=== PATIENT | male | born 1985 ===

== ENCOUNTER 2016-10-22 22:07 | Emergency (ER) | payer SELFPAY | END 2016-10-22 23:17 | disposition left against medical advice (07) | LOC: EDBD 22:07 → M ED 22:20 | DX: S11.91XA Laceration without foreign body of unspecified part of neck, initial encounter (principal); X58.XXXA Exposure to other specified factors, initial encounter; Y92.9 Unspecified place or not applicable; Y93.9 Activity, unspecified; Y99.9 Unspecified external cause status; Z53.21 Procedure and treatment not carried out due to patient leaving prior to being seen by health care provider ==